=== PATIENT | male | born 1955 | race Caucasian/White ===

== ENCOUNTER → 2019-06-02 | Outpatient (CLI) | payer MEDICARE, BC, OTHER ==
[~2019-06-02] MED LIST: ISOVUE-370 76% 100ML VIAL (Q9967) As Ordered ONE
--- NOTE | 2019-06-02 17:12 | REP ---
CT IACs / temporal bones: 06/02/2019. Indication: Sensorineural hearing loss. Comparison: None. Technique: High resolution axial imaging of the IACs / temporal bones were performed following new administration of 75 ml IV Isovue 370. Findings: The EACs are unremarkable bilaterally. No abnormal soft tissue is present within the middle ear cavities bilaterally. The mastoid air cells are clear. The inner ear anatomy is unremarkable. There is no carotid artery aberrancy. No abnormal cerebellopontine/medullary angle masses are present. The IACs are unremarkable as well. Impression: Unremarkable CT evaluation of the temporal bones/IACs. Electronically Signed by Taj Tidwell DO 06/02/2019 05:03 P
== END ==
LOC: M RAD 15:47
PROVIDERS: ATTEND Otolaryngology
DX: H90.3 Sensorineural hearing loss, bilateral (principal)
CPT/HCPCS: 70482; Q9967